=== PATIENT | male | born 1940 | race Caucasian/White ===

== ENCOUNTER 2019-07-26 10:29 | Outpatient (CLI) | payer MEDICARE, OTHER ==
--- NOTE | 2019-07-26 14:21 | NM ---
NUCLEAR MEDICINE WHOLE BODY BONE SCAN: HISTORY: Prostate cancer. Increasing PSA. COMPARISON: None. TECHNIQUE: Patient was administered 33 mCi of technetium 99m MDP intravenously. After 3 hours, whole body imagin g was performed. FINDINGS: Degenerative changes in both shoulders. Leftward curvature of the lumbar spine. Visualized distribution of radiotracer. No scintigraphic evidence of osseous metastases. IMPRESSION: No scintigraphic evidence of osseous metastasis. Transcribed Date/Time: 07/26/2019 2:37 PM
== END 2019-07-26 10:30 | disposition home or self-care (01) ==
LOC: NM 10:29
PROVIDERS: ATTEND Urology
DX: C61 Malignant neoplasm of prostate (principal)
CPT/HCPCS: 78306; A9503

== ENCOUNTER 2019-07-30 14:27 | Outpatient (CLI) | payer MEDICARE, OTHER ==
[~2019-07-30 14:27] MED LIST: Magnevist 469MG/ML 20 ML VIAL ONE
--- NOTE | 2019-07-31 09:19 | MRI ---
MRI PELVIS WITH AND WITHOUT CONTRAST: PROSTATE PROTOCOL DATE: 07/30/19 HISTORY: Prostate cancer. COMPARISON: None. FINDINGS: MRI of the pelvis was performed prior to and after the intravenous administration of contrast per [facility] protocol. The exam was reviewed on an independent 3D workstation. The prostate measures 4.4 x 2.4 x 2.7 cm for a volume of 12.96 mL. Peripheral zone: Evaluation of peripheral zone is severely limited on the diffusion-weighted imaging sequence which are nondiagnostic due to amount of gas within the rectum. PI-RADS evaluation is limit ed. There is no definite focal area of diffusion restricted appreciated. Transitional zone: Also limited due to the extensive gas in the rectum. No definite lentiform uncirc umscribed homogeneous area of hypointense signal. Prostatic capsule: Intact. Neurovascular bundles: Intact. Seminal vesicles: No seminal vesicles are appreciated. Urinary bladder: Unremarkable. Lymph nodes: No adenopathy. Bones: On T1-weighted imaging sequence, there are no focal areas of signal replacement to suggest os seous metastatic disease. IMPRESSION: 1. Severely limited exam due to the amount of gas within the rectum. PI-RADS Category 2: Low. Likely significant cancer is unlikely to be present. 2. Small low signal prostate likely sequelae of chronic inflammation/prostatitis. 3. No evidence for local regional or osseous metastatic disease. POS: [facility]
== END 2019-07-30 14:28 | disposition home or self-care (01) ==
LOC: TBSIIMAG 14:27
PROVIDERS: ATTEND Urology
DX: C61 Malignant neoplasm of prostate (principal)
CPT/HCPCS: 72197; 82565; A9579